=== PATIENT | female | born 1990 | race Two or more races ===

== ENCOUNTER → 2024-08-16 | Outpatient (CLI) | payer MEDICAID ==
[2024-08-16 11:26] LABS: Urine Bacteria None Seen /hpf (None Seen)
[2024-08-16 12:01] LABS: Urine Blood 3+ /uL (Negative); Urine Clarity Clear (Clear); Urine Color Colorless (Yellow); Urine Protein, UAD Negative (Negative); Urine Specific Gravity 1.003 (1.001-1.035); Urine Squamous Epithelial Cell FEW /hpf (<5); Urine Urobilinogen Normal (Negative); Urine WBC 1 /HPF (0-5); Urine pH 6.5 (5.0-9.0)
== END | disposition home or self-care (01) ==
LOC: LAB 11:24
PROVIDERS: ATTEND Nurse Practitioner Family
DX: N39.0 Urinary tract infection, site not specified (principal)
CPT/HCPCS: 81001; 87086